=== PATIENT | female | born 1995 | race Caucasian/White ===

== ENCOUNTER 2019-11-05 11:10 | Inpatient (IN) | payer OTHER ==
[~2019-11-05] VITALS: Ht 177.8 cm; Wt 63.5 kg
[2019-11-05] VITALS (7 sets, daily range): BP systolic 95–115; BP diastolic 53–70
[2019-11-05 11:53] LABS: APPEARANCE,URINE Cloudy (CLEAR); BILIRUBIN,URINE SMALL (NEGATIVE); BLOOD, URINE Moderate Ery/uL (NEGATIVE); COLOR,URINE Yellow (YELLOW); KETONES,URINE 40 (NEGATIVE); LEUKOCYTE ESTERASE ,URINE Small (NEGATIVE); NITRITE, URINE Negative (NEGATIVE); PH,URINE 5.5 (5.0-8.0); PROTEIN,URINE 30 mg/dl (NEGATIVE); UGLUCOSE Negative (NEGATIVE)
[2019-11-05] MEDS ORDERED: ONDANSETRON HCL/PF 4 MG/2 ML VIAL ONE (11:54)
[2019-11-05] MEDS ORDERED: MORPHINE SULFATE INJ 4 MG/ML DISP.SYRIN ONE (11:55)
[2019-11-05] MEDS ORDERED: ONDANSETRON HCL/PF 4 MG/2 ML VIAL IVP ONE (12:00)
[2019-11-05] MEDS ORDERED: MORPHINE SULFATE INJ 2 MG/ML DISP.SYRIN IV ONE (12:00)
[2019-11-05] MEDS ORDERED: IV NS 0.9% 1,000 ML BAG IV ONE (12:00)
--- NOTE | 2019-11-05 12:03 | NUR ---
PT BIB FAMILY C/O DIFFUSE ABD PAIN SINCE MONDAY. AAOX4, VSS. RR EVEN & UNLABORED. DENIES CP, SOB, DIZZINESS, N/V AT THIS TIME. PT SEEN & EVAL'D BY DR. WISE. MEDICATED FOR PAIN. WILL CONT TO MONITOR.
[2019-11-05 12:07] LABS: BASOPHILS % (AUTO) 0.2 % (0.0-2.0); EOSINOPHILS % (AUTO) 0.1 % (0.0-6.0); HEMATOCRIT 43 % (33-45); HEMOGLOBIN 14.3 g/dL (11.5-14.8); LYMPHOCYTES % (AUTO) 8.5 % (20.0-44.0); MEAN CORPUSCULAR HGB CONC 33 g/dl (31.0-36.0); MEAN CORPUSCULAR VOLUME 86 fL (82-100); MONOCYTES % (AUTO) 8.1 % (2.0-12.0); NEUTROPHILS % (AUTO) 83.1 % (43.0-81.0); PLATELET COUNT (AUTO) 233 /CMM (150-450); WHITE BLOOD COUNT (AUTO) 12.1 K/uL (4.3-11.0)
--- NOTE | 2019-11-05 12:07 | NUR ---
PT TO CT VIA [facility].
[2019-11-05 12:15] LABS: BACTERIA,URINE Few /HPF (None Seen); SQUAMOUS EPITHELIAL CELL,UR Moderate /HPF (None Seen)
[2019-11-05 12:35] LABS: CALCIUM, SERUM 9.3 mg/dL (8.5-10.1); CREATININE 0.7 mg/dL (0.6-1.3); POTASSIUM 3.5 mmol/L (3.5-5.1)
--- NOTE | 2019-11-05 12:38 | NUR ---
DR YA CALLED AND WILL COME AND SEE PT,DR CORRALES INFORMED
[2019-11-05 12:40] LABS: ALBUMIN 4.1 g/dL (3.4-5.0); BILIRUBIN,DIRECT 0.3 mg/dL (0.0-0.2); BILIRUBIN,TOTAL 1.7 mg/dL (0.2-1.0); TOTAL PROTEIN, SERUM 8.9 g/dL (6.4-8.2)
[2019-11-05] MEDS ORDERED: IBUP-1955 PO (12:51)
--- NOTE | 2019-11-05 12:55 | NUR ---
RAPID COVID DONE & SENT TO LAB.
--- NOTE | 2019-11-05 12:56 | NUR ---
Nikki cummings in [facility] - 11/05/19 at 1317 by ROSALBA [id number] ASSIGNED
[2019-11-05] MEDS ORDERED: PIPERACILLIN /TAZOBACTAM 3.375 G in IV D5W 50 ML IV ONE (13:00)
--- NOTE | 2019-11-05 14:35 | NUR ---
LAB CALLED COVID-19 NEG. (-)
--- NOTE | 2019-11-05 14:36 | NUR ---
GOT BED 321-2
[2019-11-05] MEDS ORDERED: FENTANYL PF 250MCG/5ML AMPUL ONE (14:58)
[2019-11-05] MEDS ORDERED: MIDAZOLAM HCL 2 MG/2ML VIAL ONE (14:58)
--- NOTE | 2019-11-05 15:22 | NUR ---
PT TO OR VIA [facility].
[2019-11-05] MEDS ORDERED: BUPIVACAINE MPF 0.5% W/EPI INJ 30 ML VIAL ONE (16:13)
[2019-11-05] MEDS ORDERED: LIDOCAINE 1% INJ 50 ML MDV IJ ONE (16:13)
[2019-11-05] MEDS ORDERED: METRONIDAZOLE 500MG/ NS 100ML 100 ML IV ONE (16:20)
[2019-11-05] MEDS ORDERED: ACETAMINOPHEN 325 MG TABLET PO PRN ×2 (16:30)
[2019-11-05] MEDS ORDERED: HYDROMORPHONE INJ 2 MG/ML DISP.SYRIN IV PRN (16:30)
[2019-11-05] MEDS ORDERED: MORPHINE SULFATE INJ 2 MG/ML DISP.SYRIN IV PRN (16:30)
[2019-11-05] MEDS ORDERED: ONDANSETRON HCL/PF 4 MG/2 ML VIAL IVP PRN (16:30)
[2019-11-05] MEDS ORDERED: Z GUARD REMEDY 2 OZ OINT TP PRN (16:30)
[2019-11-05] MEDS: IV NS 0.9% 1,000 ML IV PRN (17:53)
[2019-11-05] MEDS ORDERED: PIPERACILLIN /TAZOBACTAM 3.375 G in IV D5W 50 ML IV SCH (18:00)
--- NOTE | 2019-11-05 18:42 | NUR ---
MS RN ADMITTING NOTES PT ADMITTED TO UNIT FROM [facility]. AT 1735 S/P PERFORATED LAP APPENDECTOMY, REMOVAL PARATUBAL CYST BY HARVEY CASTILLO. PT WAS ACCOMPANIED BY [facility]. NURSE JEFF. A/O X4 ABLE TO MAKE NEEDS KNOWN, VERBALIZED THAT ABDOMINAL PAIN IS BEARABLE AT THIS TIME. PT ORIENTED TO STAFF AND ROOM. ON ROOM AIR, BREATHING EVEN AND UNLABORED, SP02 STABLE. PT WITH THREE SURGICAL INCISIONS ON ABDOMEN: UMBILICAL AREA, MID LOWER ABDOMEN AND LLQ. SURGICAL INCISIONS WITH STERILE STRIPS IN PLACE WITH NO BLEEDING NOTED. PT WITH IV ACCESS ON LAC G#20, INTACT AND PATENT, IVF OF NS @ 100ML/HR STARTED, NO S/S OF INFILTRATIONS AT SITE NOTED. SAFETY MEASURES IN PLACE: BED IN LOWEST LOCKED POSITION WITH SR UP X2. CALL LIGHT PLACED WITHIN EASY REACH OF PT. WILL CONTINUE TO MONITOR PT.
--- NOTE | 2019-11-05 18:56 | NUR ---
MS RN CLOSING NOTES PT IN BED AWAKE AT THIS TIME. HOB ELEVATED. A/O X4, SAME ABLE TO MAKE NEEDS KNOWN. SURGICAL INCISIONS ON ABDOMEN INTACT WITH STERILE STRIPS C/D/I. IV ACCESS ON LAC G#20 INTACT AND PATENT, IV ATB ZOSYN IVPB INFUSING AT THIS TIME, NO S/S OF INFILTRATIONS NOTED. ON ROOM AIR, BREATHING EVEN AND UNLABORED. BED IN LOWEST LOCKED POSITION W/ SR UP X2. CALL LIGHT IN REACH. WILL ENDORSE TO EARLY CHILDHOOD SERVICES COORDINATOR NURSE FOR JU.
--- NOTE | 2019-11-05 19:30 | NUR ---
MS/RN OPENING NOTES RECEIVED PATIENT RESTING IN BED. PATIENT IS ALERT AND ORIENTED X 4. PATIENT IS ON ROOM AIR NO SIGNS OF SOB OR RESPIRATORY DISTRESS NOTED. PATIENT ABDOMINAL INCISION SITE SHOW NO SIGNS OF ACTIVE BLEEDING DRESSING INTACT. PATIENT HAS LAC #20G INTACT RUNNING 100ML/HR. SAFETY MEASURES ARE IN PLACE, BED IS LOCKED AND PLACED IN THE LOW POSITION, SIDE RAILS UP X 2, CALL LIGHT WITHIN REACH. WILL CONTINUE TO MONITOR PATIENT DURING SHIFT.
[2019-11-05] MEDS: PIPERACILLIN /TAZOBACTAM 3.375 G in IV D5W 50 ML IV SCH (20:05)
[2019-11-05] MEDS: HYDROCODONE/APAP 5/325MG TABLET PO PRN (22:02)
--- NOTE | 2019-11-05 22:05 | NUR ---
MS/RN NOTES PATIENT COMPLAINING OF RIGHT SHOULDER PAIN. PATIENT GIVEN NORCO 5-325 TAB PO. V/S ARE STABLE. WILL CONTINUE TO MONITOR.
[2019-11-06] MEDS: PIPERACILLIN /TAZOBACTAM 3.375 G in IV D5W 50 ML IV SCH ×2 (03:18→19:28)
--- NOTE | 2019-11-06 06:15 | NUR ---
MS/RN CLOSING NOTES PATIENT RESTING IN BED. PATIENT IS ALERT AND ORIENTED X 4. PATIENT IS ON ROOM AIR NO SIGNS OF SOB OR RESPIRATORY DISTRESS NOTED. PATIENT ABDOMINAL INCISION SITE SHOW NO SIGNS OF ACTIVE BLEEDING STERI STRIPS ARE INTACT. PATIENT HAS LAC #20G INTACT RUNNING 75ML/HR. ALL PATIENT NEEDS HAVE BEEN MET DURING SHIFT. SAFETY MEASURES ARE IN PLACE, BED IS LOCKED AND PLACED IN THE LOW POSITION, SIDE RAILS UP X 2, CALL LIGHT WITHIN REACH. WILL ENDORSE CARE TO DAY SHIFT.
[2019-11-06 06:28] LABS: BASOPHILS % (AUTO) 0.2 % (0.0-2.0); HEMATOCRIT 37 % (33-45); HEMOGLOBIN 12.5 g/dL (11.5-14.8); LYMPHOCYTES # (AUTO) 0.6 /CMM (0.8-4.8); LYMPHOCYTES % (AUTO) 6.5 % (20.0-44.0); MEAN CORPUSCULAR HGB CONC 34 g/dl (31.0-36.0); MEAN CORPUSCULAR VOLUME 85 fL (82-100); MONOCYTES # (AUTO) 0.6 /CMM (0.1-1.30); MONOCYTES % (AUTO) 6.7 % (2.0-12.0); NEUTROPHILS # (AUTO) 7.5 /CMM (1.8-8.9); NEUTROPHILS % (AUTO) 86.6 % (43.0-81.0); PLATELET COUNT (AUTO) 186 /CMM (150-450); RED BLOOD CELL COUNT(AUTO) 4.33 MIL/uL (4.0-5.2); WHITE BLOOD COUNT (AUTO) 8.6 K/uL (4.3-11.0)
[2019-11-06] MEDS: HYDROCODONE/APAP 5/325MG TABLET PO PRN ×2 (06:46→20:05)
--- NOTE | 2019-11-06 07:30 | NUR ---
MS/RN OPENING NOTE Received patient awake in bed, A&O x 4. Denies any pain and discomfort at this time. Breathing even and non-labored on RA, no SOB noted. No cardiac distress noted. IV access noted LAC #20 gauge, patent and intact, and running NS @75ml/hr. No s/s of infiltration, infection, or bleeding noted on site. 3 abdominal incision sites with steristrips noted, dressings remain clean and intact. Sensation from all peripheral extremities intact. Instructed patient to use call light when in need of assistance. Bed rails x 2 up, bed locked to its lowest position, call light in hand. Will continue with current medical management.
[2019-11-06 08:00] VITALS: BP 106/64
[2019-11-06 08:40] LABS: POTASSIUM 3.9 mmol/L (3.5-5.1)
[2019-11-06 08:41] LABS: MAGNESIUM 2.2 mg/dL (1.8-2.4); PHOSPHORUS 3.6 mg/dL (2.5-4.9)
[2019-11-06 08:42] LABS: CREATININE 0.5 mg/dL (0.6-1.3)
[2019-11-06 08:43] LABS: CALCIUM, SERUM 8.8 mg/dL (8.5-10.1)
--- NOTE | 2019-11-06 09:15 | NUR ---
MS/RN NOTE Per Dr. Cabello, patient okay to advance diet as tolerated. Order carried out, will continue to monitor.
[2019-11-06] MEDS: HYDROMORPHONE INJ 2 MG/ML DISP.SYRIN IV PRN ×2 (13:13→16:35)
[2019-11-06] MEDS: IV NS 0.9% 1,000 ML IV PRN (15:45)
[2019-11-06 16:00] VITALS: BP 113/71
--- NOTE | 2019-11-06 18:26 | NUR ---
MS/RN NOTE BETTE Chapa ordered zosyn 3.375 g q8h. Order carried out.
--- NOTE | 2019-11-06 18:42 | NUR ---
MS/RN CLOSING NOTE Patient resting in bed, A&O x 4. All needs met and attended to. No complaints of any pain and discomfort at this time, last dilaudid 0.5 mg at 1635. Breathing even and non-labored on RA. No respiratory or cardiac distress noted. IV access noted LAC #20 gauge, remained patent and intact, and running NS @ 75 ml/hr. No s/s of infiltration, infection, or bleeding noted on site. Sensation from all peripheral extremities intact. Instructed patient to use call light when in need of assistance. Fall precautions maintained. Will endorse to waterproof material folder nurse.
[2019-11-06 20:00] VITALS: BP 101/65
[2019-11-07] MEDS: PIPERACILLIN /TAZOBACTAM 3.375 G in IV D5W 50 ML IV SCH ×2 (01:13→09:08)
[2019-11-07] MEDS: HYDROCODONE/APAP 5/325MG TABLET PO PRN (01:29)
--- NOTE | 2019-11-07 02:31 | NUR ---
MS RN NOTES RECEIVED REPORT FOR NENITA RDZ FOR JU. WILL CONTINUE TO MONITOR.
[2019-11-07] MEDS: IV NS 0.9% 1,000 ML IV PRN (03:24)
[2019-11-07 06:52] LABS: BASOPHILS % (AUTO) 0.5 % (0.0-2.0); EOSINOPHILS % (AUTO) 0.6 % (0.0-6.0); HEMATOCRIT 33 % (33-45); HEMOGLOBIN 11.1 g/dL (11.5-14.8); LYMPHOCYTES # (AUTO) 1.5 /CMM (0.8-4.8); LYMPHOCYTES % (AUTO) 30.6 % (20.0-44.0); MEAN CORPUSCULAR HGB CONC 34 g/dl (31.0-36.0); MEAN CORPUSCULAR VOLUME 85 fL (82-100); MONOCYTES # (AUTO) 0.5 /CMM (0.1-1.30); MONOCYTES % (AUTO) 10.6 % (2.0-12.0); NEUTROPHILS # (AUTO) 2.8 /CMM (1.8-8.9); NEUTROPHILS % (AUTO) 57.7 % (43.0-81.0); PLATELET COUNT (AUTO) 172 /CMM (150-450); RED BLOOD CELL COUNT(AUTO) 3.85 MIL/uL (4.0-5.2); WHITE BLOOD COUNT (AUTO) 4.9 K/uL (4.3-11.0)
--- NOTE | 2019-11-07 07:15 | NUR ---
MS RN NOTES PATIENT IN BED, ASLEEP, ALERT AND ORIENTED X 4. BREATHING EVEN AND UNLABORED ON ROOM AIR. SHOWS NO SIGNS OF ACUTE RESPIRATORY NO ACUTE PAIN. ABD WITH 3 INCISION STRIP INTACT AND INPLACE. CLEAN AND DRY. IV ON LAC 20G RUNNING NS AT 100ML/HR. SHOWS NO SIGNS OF INFILTRATION, NO REDNESS. ALL DUE MEDICATIONS GIVEN. SAFETY PRECAUTIONS IN PLACE. BED IN LOWEST POSITION, LOCKED, AND CALL LIGHT KEPT WITHIN REACH. WILL ENDORSE TO ONCOMING NURSE.
[2019-11-07 07:30] LABS: CALCIUM, SERUM 7.9 mg/dL (8.5-10.1); CREATININE 0.5 mg/dL (0.6-1.3); PHOSPHORUS 2.5 mg/dL (2.5-4.9); POTASSIUM 3.4 mmol/L (3.5-5.1)
--- NOTE | 2019-11-07 07:35 | NUR ---
RN OPENING NOTE Patient is resting in bed, A/O x4, showing no signs of acute distress or SOB, stable on RA. Patient is c/o tightness in lower abdomen. Patient refuses pain medication at this time. Patient also c/o swelling in her right labia, denies pain and/or bleeding. Charge nurse made aware and notified Opal Peraza and Dr. Conrado Cabello. Patient is able to ambulate to bathroom with steady gait. Bed is in lowest position, side rails x3 in upright position, call light is within reach, fall safety and aspiration precautions enforced. Will continue with plan of care.
[2019-11-07 08:00] VITALS: BP 105/69
[2019-11-07] MEDS ORDERED: POTASSIUM CHLORIDE 20 MEQ TAB.PRT.SR PO ONE (11:00)
[2019-11-07] MEDS ORDERED: ONDA4TAB11 PO (14:30)
[2019-11-07] MEDS ORDERED: IBUP-1955 PO (14:30)
[2019-11-07] MEDS ORDERED: AMOX-427 PO (14:30)
--- NOTE | 2019-11-07 14:54 | NUR ---
HIGH SCHOOL BAND DIRECTOR NOTE Patient is medically cleared for discharge. Patient is A/O x4, showing no signs of acute distress or SOB, stable on RA. Patient has been S/B Dr. Cabello and cleared her for DC. Per Opal PHP MAGENTO DEVELOPER, patient is cleared for DC and to follow-up in 2 weeks. Patient's c/o swelling in labia has been assessed by both hospitalists and is ok for DC and to f/u outpatient. DC instructions provided and patient verbalized understanding. Patient instructed not to do heavy lifting or driving by PHP MAGENTO DEVELOPER. Patient verbalized understanding. Prescriptions sent electronically to preferred pharmacy. IV removed, ID band removed. All patient needs met, all due medications given. Patient picked up by parents en route to home.
== END 2019-11-07 14:51 | disposition home or self-care (01) | DRG 233 ==
LOC: ER 11:10 → MED 14:38
PROVIDERS: ADMIT Nurse Practitioner Acute Care; ATTEND Nurse Practitioner Acute Care
PROC: 0DTJ4ZZ Resection of Appendix, Percutaneous Endoscopic Approach (ICD-10-PCS; principal; 2019-11-05)
PROC: 0UB64ZZ Excision of Left Fallopian Tube, Percutaneous Endoscopic Approach (ICD-10-PCS; 2019-11-05)
DX: K35.32 Acute appendicitis with perforation, localized peritonitis, and gangrene, without abscess (principal); K80.20 Calculus of gallbladder without cholecystitis without obstruction; N39.0 Urinary tract infection, site not specified; K38.1 Appendicular concretions; N83.202 Unspecified ovarian cyst, left side; E80.6 Other disorders of bilirubin metabolism; N83.8 Other noninflammatory disorders of ovary, fallopian tube and broad ligament
CPT/HCPCS: 36415; 80048-TC; 80076-TC; 81000-TC; 83605-TC; 83690-TC; 83735-TC; 84100-TC; 84703-TC; 85025-TC; 87040-TC; 87081-TC; 87086-TC; C9803-CS; G0378; J0690; J1100; J1170; J2250; J2270; J2405; J2543; J2704; J2765; J3010; J3490; J7030; J7060